=== PATIENT | male | born 1990 | race Caucasian/White ===

== ENCOUNTER 2016-08-23 18:55 | Emergency (ER) | payer OTHER ==
[~2016-08-23] VITALS: Ht 175.3 cm; Wt 81.3 kg
[2016-08-23 20:02] VITALS: BP 120/74; PULSE 71; RESP 18; TEMP 98.8; O2SAT 99
--- NOTE | 2016-08-23 22:06 | PD ---
HPI Chief Complaint: Eye Problems/Injury Time Seen by Provider: 22:04 Travel History International Travel<30 days: No Contact w/Intl Traveler<30days: No Traveled to known affect area: No History of Present Illness HPI Patient comes in complaining of irritation left thigh that occurred around 1400 today. Patient states he is at work and feels as though some something may have flown up underneath his safety glasses causing irritation to his left eye. Patient feels there is a foreign body in his left eye currently. Patient states he has irrigated his eye multiple times with little to no improvement of his symptoms. Patient also reports he feels this has affect his vision somewhat. Denies any headache with this. Patient reports his tetanus shot is not up-to-date. [facility] Past Medical History Medical History: Denies Significant Hx Tetanus Vaccination: > 5 Years Influenza Vaccination: No Past Surgical History Surgical History: No Previous Surgery Social History Alcohol Use: No Tobacco Use: No Substance Use: No Allergies-Medications (Allergen,Severity, Reaction): Coded Allergies: No Known Allergies (Verified , 08/23/16) Reported Meds & Prescriptions Reported Meds & Active Scripts Active Erythromycin Opth Oint 5 Mg/Gm Oint 1 Applic RIGHT EYE QID Review of Systems Except as stated in HPI: all other systems reviewed are Neg Physical Exam Narrative GENERAL: Well-developed, overly nourished, in no acute distress, and non-ill appearing. SKIN: Warm and dry. HEAD: Atraumatic. Normocephalic. EYES: Pupils equal and round. EOMI. No scleral icterus. No injection or drainage. ENT: No nasal bleeding or discharge. Mucous membranes pink and moist. NECK: Trachea midline. Supple. No nuclear rigidity. RESPIRATORY: No accessory muscle use. No respiratory distress. MUSCULOSKELETAL: No obvious deformities. No clubbing. No cyanosis. No edema. Full range of motion. NEUROLOGICAL: Awake and alert. No obvious cranial nerve deficits. Motor grossly within normal limits. Normal speech. PSYCHIATRIC: Appropriate mood and affect; insight and judgment normal. Data Data Last Documented VS Vital Signs Date Time Temp Pulse Resp B/P Pulse Ox O2 Delivery O2 Flow Rate FiO2 08/23/16 20:02 98.8 71 18 120/74 99 Orders Proparacaine 0.5% Opth Soln (Alcaine 0.5 (08/23/16 22:15) Tetanus/Diphtheria Tox Adult (Tetanus/Di (08/23/16 22:45) MDM Medical Decision Making Medical Screen Exam Complete: Yes Emergency Medical Condition: Yes Differential Diagnosis Retained foreign body, corneal abrasion, corneal ulceration, other Narrative Course The patient has a small corneal abrasion. The patient was examined and stained. No evidence of foreign body by exam. There is no evidence of iritis, glaucoma, preseptal cellulitis, periorbital or orbital cellulitis. The diagnosis and problem was discussed with the patient, and the need for frequent ophthalmologic antibiotics was discussed with the patient. The patient was instructed to follow up with ophthalmology or return here if worsened, increased pain, decreased vision, swelling around the eye or as needed. The patient agreed with plan. Visit acuity was checked and found to be 20/20 OD and both eyes and 20/25 OS. Patient in no obvious distress upon re-evaluation. Patient was asked if they wanted to speak to my attending, which the patient did not wish to do at this time. Any questions/concerns in reference to patient diagnosis/condition discussed and clarified prior to patient's discharge. Reinforced sheer importance of close follow up with patient's primary physician or primary care clinic and e marketing specialist. Instructed patient to return to ED immediately, if symptoms return/worsen. Pt showed understanding of above instructions. Further instructions and recommendations were detailed in discharge paperwork. Pt ambulated without difficulty out of ED at discharge. Procedures Procedure Narrative Verbal consent was obtained. Affected eye was anesthetized using proparacaine. Fluorescein staining and Wood lamp exam performed with uptake seen. Negative Clarissa sign. No hyphema, hyperemia, or rust ring. Eyelid was everted with no foreign body noted. No tenderness bilateral temporal arteries to palpation. Patient tolerated procedure well. Diagnosis Primary Impression: Corneal abrasion, left Qualified Code: S05.02XA - Corneal abrasion, left, initial encounter Referrals: Natty Burgos MD Patient Instructions: Corneal Abrasion (ED), General Instructions Additional Instructions: Follow-up with e marketing specialist in 2-5 days for reevaluation. Take all medication as prescribed. Return to the emergency department if symptoms get worse. Med/Other Pt SpecificInfo: Prescription(s) given Scripts Erythromycin Opth Oint 5 Mg/Gm Oint1 Applic RIGHT EYE QID #1 TUBE Ref 0 Prov:Yao Craven MD 08/23/16 Disposition: 01 DISCHARGE HOME Condition: Stable Jesus Rivera Aug 23, 2016 22:06
[2016-08-23] MEDS ORDERED: PROPARACAINE HCL 0.5% OPHT SOLN 15 ML BTL LEFT EYE ONE (22:15)
[2016-08-23] MEDS ORDERED: ERYTOIN10 RIGHT EYE (22:43)
[2016-08-23] MEDS ORDERED: TETANUS/DIPHTHERIA TOXOID ADULT 0.5 ML VIAL IM ONE (22:45)
== END 2016-08-23 22:52 | disposition home or self-care (01) ==
LOC: PHED 18:55 → PHEFT 22:52
DX: S05.02XA Injury of conjunctiva and corneal abrasion without foreign body, left eye, initial encounter (principal); X58.XXXA Exposure to other specified factors, initial encounter; Z23 Encounter for immunization; Y99.0 Civilian activity done for income or pay
CPT/HCPCS: 90471; 90714

== ENCOUNTER 2017-06-27 20:33 | Emergency (ER) | payer OTHER ==
[~2017-06-27 20:33] MED LIST: ERYTOIN10 RIGHT EYE
[2017-06-27 20:35] VITALS: BP 136/73; PULSE 119; RESP 20; TEMP 98.6; O2SAT 100
[2017-06-27] MEDS ORDERED: ONDANSETRON HCL 4 MG/2 ML VIAL IV PUSH ONE (21:15)
[2017-06-27] MEDS ORDERED: KETOROLAC TROMETHAMINE 30 MG/ML (IVP) VIAL IV PUSH ONE (21:15)
[2017-06-27] MEDS ORDERED: SODIUM CHLOR 0.9% 1000 ML INJ 1,000 ML IV ONE (21:15)
[2017-06-27 21:24] LABS: AUTOMATED NEUTROPHIL # 13.4 TH/MM3 (1.8-7.7); BASOPHIL # 0.1 TH/MM3 (0-0.2); BASOPHIL % 0.5 % (0.0-2.0); EOSINOPHIL % 0.3 % (0.0-4.0); HEMATOCRIT 46.4 % (39.0-51.0); HEMOGLOBIN 15.8 GM/DL (13.0-17.0); LYMPH % 6.1 % (9.0-44.0); LYMPHOCYTE # 0.9 TH/MM3 (1.0-4.8); MEAN CELL VOLUME 79.7 FL (80.0-100.0); MEAN CORPUSCULAR HEMOGLOBIN 27.2 PG (27.0-34.0); MEAN CORPUSCULAR HGB CONC 34.1 % (32.0-36.0); MEAN PLATELET VOLUME 8.5 FL (7.0-11.0); MONO % 6.2 % (0.0-8.0); NEUT % 86.9 % (16.0-70.0); PLATELET COUNT 135 TH/MM3 (150-450); RED BLOOD COUNT 5.83 MIL/MM3 (4.50-5.90); RED CELL DISTRIBUTION WIDTH 12.9 % (11.6-17.2); WHITE BLOOD COUNT 15.4 TH/MM3 (4.0-11.0)
[2017-06-27 21:33] LABS: CHLORIDE 104 MEQ/L (98-107); SODIUM (NA) 138 MEQ/L (136-145)
--- NOTE | 2017-06-27 21:36 | PD ---
HPI Chief Complaint: GI Complaint Time Seen by Provider: 20:53 Travel History International Travel<30 days: No Contact w/Intl Traveler<30days: No Traveled to known affect area: No History of Present Illness HPI Patient 26-year-old male who after putting his kids to bed tonight this sat on the toilet felt nauseous and vomited 3 times come to the ER. 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 He HAS DIFFUSE ABDO PAIN NO DIARRHEA , NO BM pt ate no strange foods from anywhere . Pt is non toxic appearing and also reports URI like symptoms earlier in the day . The report of blood streaks in vomitus , no large amount of clots or blood . In ER no signs of hemorrhage PFSH Past Medical History Medical History: Denies Significant Hx Diminished Hearing: No Influenza Vaccination: No ?: Not Past Surgical History Surgical History: No Previous Surgery Social History Alcohol Use: No Tobacco Use: No Substance Use: No Allergies-Medications (Allergen,Severity, Reaction): Coded Allergies: No Known Allergies (Verified Adverse Reaction, Unknown, 06/27/17) Reported Meds & Prescriptions Reported Meds & Active Scripts Active Pepcid (Famotidine) 20 Mg Tab 20 Mg PO BID Zofran Odt (Ondansetron Odt) 4 Mg Tab 4 Mg SL Q6HR PRN Review of Systems Except as stated in HPI: all other systems reviewed are Neg Gastrointestinal: Positive: Nausea, Vomiting, Abdominal Pain, No: Diarrhea Physical Exam Narrative GENERAL: non toxic appearing AOX3 SKIN: Warm and dry. HEAD: Atraumatic. Normocephalic. EYES: Pupils equal and round. No scleral icterus. No injection or drainage. ENT: No nasal bleeding or discharge. Mucous membranes pink and moist. NECK: Trachea midline. No JVD. CARDIOVASCULAR: Regular rate and rhythm. RESPIRATORY: No accessory muscle use. Clear to auscultation. Breath sounds equal bilaterally. GASTROINTESTINAL: Abdomen soft, mildly diffusely tender , nondistended. Hepatic and splenic margins not palpable. MUSCULOSKELETAL: Extremities without clubbing, cyanosis, or edema. No obvious deformities. NEUROLOGICAL: Awake and alert. No obvious cranial nerve deficits. Motor grossly within normal limits. Five out of 5 muscle strength in the arms and legs. Normal speech. PSYCHIATRIC: Appropriate mood and affect; insight and judgment normal. AFTER PPI IV feels little tenderness abdo non focal Data Data Last Documented VS Vital Signs Date Time Temp Pulse Resp B/P (MAP) Pulse Ox O2 Delivery O2 Flow Rate FiO2 06/27/17 23:03 100 16 100/46 (64) 97 06/27/17 20:35 98.6 Orders Orders Ondansetron Inj (Zofran Inj) (06/27/17 21:15) Ketorolac Inj (Toradol Inj) (06/27/17 21:15) Sodium Chlor 0.9% 1000 Ml Inj (Ns 1000 M (06/27/17 21:15) Complete Blood Count With Diff (06/27/17 21:15) Comprehensive Metabolic Panel (06/27/17 21:15) Lipase (06/27/17 21:15) Influenzae A/B Antigen (06/27/17 21:15) Group A Rapid Strep Screen (06/27/17 21:15) Strep Culture (Group A) (06/27/17 21:20) Ed Discharge Order (06/27/17 22:46) Labs Laboratory Tests Test 06/27/17 21:00 White Blood Count 15.4 TH/MM3 Red Blood Count 5.83 MIL/MM3 Hemoglobin 15.8 GM/DL Hematocrit 46.4 % Mean Corpuscular Volume 79.7 FL Mean Corpuscular Hemoglobin 27.2 PG Mean Corpuscular Hemoglobin Concent 34.1 % Red Cell Distribution Width 12.9 % Platelet Count 135 TH/MM3 Mean Platelet Volume 8.5 FL Neutrophils (%) (Auto) 86.9 % Lymphocytes (%) (Auto) 6.1 % Monocytes (%) (Auto) 6.2 % Eosinophils (%) (Auto) 0.3 % Basophils (%) (Auto) 0.5 % Neutrophils # (Auto) 13.4 TH/MM3 Lymphocytes # (Auto) 0.9 TH/MM3 Monocytes # (Auto) 1.0 TH/MM3 Eosinophils # (Auto) 0.0 TH/MM3 Basophils # (Auto) 0.1 TH/MM3 CBC Comment DIFF FINAL Differential Comment Blood Urea Nitrogen 11 MG/DL Creatinine 1.00 MG/DL Random Glucose 102 MG/DL Total Protein 7.3 GM/DL Albumin 4.1 GM/DL Calcium Level 9.0 MG/DL Alkaline Phosphatase 66 U/L Aspartate Amino Transf (AST/SGOT) 15 U/L Alanine Aminotransferase (ALT/SGPT) 20 U/L Total Bilirubin 1.8 MG/DL Sodium Level 138 MEQ/L Potassium Level 3.6 MEQ/L Chloride Level 104 MEQ/L Carbon Dioxide Level 25.9 MEQ/L Anion Gap 8 MEQ/L Estimat Glomerular Filtration Rate 90 ML/MIN Lipase 143 U/L MDM Medical Decision Making Medical Screen Exam Complete: Yes Emergency Medical Condition: Yes Differential Diagnosis gastroenterits viral and FLU, vs SBO , ( virgin abdo) vs colitis , other Narrative Course Zofran IV fluid and pepcid feeling better tolerated PO outpt follow up , H and H normal no signs of significant blood in vomit and no return of vomiting in ER , pt safe for close outpt follow up Diagnosis Primary Impression: Viral gastroenteritis Patient Instructions: Gastroenteritis (ED), General Instructions Scripts Famotidine (Pepcid) 20 Mg Tab 20 MG PO BID, #20 TAB 0 Refills Prov: Herrera Ji MD 06/27/17 Ondansetron Odt (Zofran Odt) 4 Mg Tab 4 MG SL Q6HR Y for Nausea/Vomiting, #15 TAB 0 Refills Prov: Herrera Ji MD 06/27/17 Disposition: 01 DISCHARGE HOME Condition: Good Herrera Ji MD Jun 27, 2017 21:36
[2017-06-27 21:37] LABS: ALBUMIN 4.1 GM/DL (3.4-5.0); BICARBONATE 25.9 MEQ/L (21.0-32.0); BLOOD UREA NITROGEN 11 MG/DL (7-18); GLUCOSE,RANDOM 102 MG/DL (74-106); LIPASE 143 U/L (73-393)
[2017-06-27 21:40] LABS: ALT (GPT) 20 U/L (12-78); AST (GOT) 15 U/L (15-37); GLOMERULAR FILTRATION RATE 90 ML/MIN (>89)
[2017-06-27 21:41] LABS: TOTAL BILIRUBIN ADULT 1.8 MG/DL (0.2-1.0); TOTAL PROTEIN 7.3 GM/DL (6.4-8.2)
[2017-06-27 21:43] LABS: ALKALINE PHOSPHATASE 66 U/L (45-117)
[2017-06-27] MEDS ORDERED: FAMO1TAB37 PO (22:45)
[2017-06-27] MEDS ORDERED: ZOFR4TAB3 SL (22:45)
[2017-06-27 23:03] VITALS: BP 100/46
== END 2017-06-27 23:07 | disposition home or self-care (01) ==
LOC: PHED 20:33
DX: A08.4 Viral intestinal infection, unspecified (principal)
CPT/HCPCS: 80053; 83690; 85025; 87081; 87804; 87880; 96361; 96374; 96375; 99284; J1885; J2405; J7030